=== PATIENT | male | born 1955 | race Caucasian/White ===

== ENCOUNTER 2019-05-16 17:37 | Emergency (ER) | payer MEDICAID ==
[~2019-05-16] VITALS: Ht 180.3 cm; Wt 80.3 kg
[2019-05-16 17:59] VITALS: BP_SYST 139
--- NOTE | 2019-05-16 18:11 | NUR ---
Patient to ER bed 05 to gown for evaluation. Side rails up. Report given to Suzie TUTTLE.
--- NOTE | 2019-05-16 18:20 | NUR ---
Patient arrived via POV, AAOx4, and ambulatory with steady gait. Patient brought in by family for c/c of generalized rash. Patient states the rash onset was a year ago. He states it was 2 small pink rash areas to the anterior right leg. For the past month he has noticed that it has created dry skin plaques, mild swelling to lower extremities. Patient states it is only mildly itchy. Patient was seen by [employer] as a [employer] patient. Patient states the only thing was seen regarding skin issues was a possible skin cancer to the top of his head. Patient reports a change in soap. No shortness of breath, reported. Will continue to follow up and monitor.
--- NOTE | 2019-05-16 18:25 | NUR ---
ER at bedside examining patient.
--- NOTE | 2019-05-16 18:56 | NUR ---
Lab at bedside for collection of blood.
[2019-05-16 19:15] LABS: BASOPHILS # (AUTO) 0.1 K/uL (0.0-0.2); BASOPHILS % (AUTO) 1.7 % (0.0-2.0); EOSINOPHILS # (AUTO) 0.3 K/uL (0.0-0.4); EOSINOPHILS % (AUTO) 5.3 % (0.0-4.0); HEMATOCRIT 46.8 % (36-54); HEMOGLOBIN 15.5 g/dL (14.0-18.0); LYMPHOCYTES # (AUTO) 1.8 K/uL (1.0-5.5); LYMPHOCYTES % (AUTO) 27.5 % (20.5-51.5); MEAN CORPUSCULAR HEMOGLOBIN 31 pg (27-31); MEAN CORPUSCULAR HGB CONC 33 % (32-36); MEAN CORPUSCULAR VOLUME 92 fL (79.0-98.0); MONOCYTES # (AUTO) 0.6 K/uL (0.0-1.0); MONOCYTES % (AUTO) 8.9 % (1.7-9.3); NEUTROPHILS # (AUTO) 3.7 K/uL (1.8-7.7); NEUTROPHILS % (AUTO) 56.6 % (40.0-70.0); PLATELET COUNT (AUTO) 231 K/uL (130-430); WHITE BLOOD COUNT (AUTO) 6.5 K/uL (4.8-10.8)
[2019-05-16 19:22] LABS: CALCIUM 8.7 mg/dL (8.4-11.0); CREATININE 0.88 mg/dL (0.55-1.30); POTASSIUM 3.9 mmol/L (3.5-5.1)
--- NOTE | 2019-05-16 19:26 | NUR ---
Pt denies c/o pain or discomfort, no needs verbalized at this time. Pt pending discharge.
--- NOTE | 2019-05-16 19:26 | NUR ---
Report given to PARAG Oseguera.
[2019-05-16 20:00] VITALS: BP_SYST 128
--- NOTE | 2019-05-16 20:00 | NUR ---
Patient given written and verbal discharge instructions and verbalizes understanding. ER MD discussed with patient the results and treatment provided. Patient in stable condition. ID arm band removed. Rx of Prednisone and Hydrocortisone given. Patient educated on pain management and to follow up with PMD. Pain Scale 0/10. Opportunity for questions provided and answered. Medication side effect fact sheet provided.
== END 2019-05-16 20:00 | disposition home or self-care (01) ==
LOC: SED 17:37
DX: L30.9 Dermatitis, unspecified (principal)
CPT/HCPCS: 36415; 80048; 85025; 99283